=== PATIENT | female | born 1985 | race Caucasian/White ===

== ENCOUNTER 2023-10-04 20:48 | Emergency (ER) | payer MEDICARE, OTHER, SELFPAY ==
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
[2023-10-04 23:04] VITALS: BP 130/91
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
--- NOTE | 2023-10-05 00:46 | EDRN ---
per this pts request, this ASSISTANT SIGNAL MAINTAINER gave this pt a tooth brush to brush her teeth. the pt is requesting 'something to help me calm down. I have had Ativan in the past.' ER Dr Luong was notified of above. 1:1 observation is maintained by [facility] security
guard.
--- NOTE | 2023-10-05 01:01 | EDRN ---
this FACILITY MANAGER attempted to give this pt her ordered PO Ativan per EMAR order. the pt states she wants to take the med AFTER she talks with the psychiatrist via telelink. the pt is cooperative with staff. 1:1 observation is maintained by security
guard
--- NOTE | 2023-10-05 04:00 | EDRN ---
the pt had finished speaking with telepsych per safety and security officer. the pt was given a boxed lunch to eat per her request.
--- NOTE | 2023-10-05 04:33 | EDRN ---
this REGISTER OF WILLS again attempted to obtain this pts ordered bloodwork and urine specimen. the pt became irritable and stated 'no thank you, i just had my bloodwork done.' this REGISTER OF WILLS attempted to explain to this pt why bloodwork and urine tests were
required related to this current ER visit. the pt interrupted this REGISTER OF WILLS and stated loudly 'I know how this works, I have been to the hospital before, I want my waste picker and to make a few phone calls first.' the pt was becoming increasingly angry the
longer this REGISTER OF WILLS attempted to speak with this pt. This REGISTER OF WILLS was unable to obtain ordered bloodwork and urine specimen for testing at this time. ER Dr Hunter was notified of above.
1:1 observation is maintained by security officer.
--- NOTE | 2023-10-05 06:03 | EDRN ---
the pt is observed laying on ER stretcher in Crisis Room 1 with the room lights dimmed. the pt appears in NO acute distress, respirations unlabored, and skin color is within normal limits. Per sheet metal worker maintenance, the pts 302 is upheld and the pt will be
a Crisis Hold in the ER for the foreseeable future. 1:1 observation is maintained by ice guard tester.
--- NOTE | 2023-10-05 07:29 | ED.CRISIS ---
ED Crisis Note
ED Crisis Note
Subjective:
38-year-old female with a history of bipolar disorder. Awaits placement. No new events
Objective:
No respiratory distress. Awake and alert. Calm
Assessment/Plan:
Reportedly accepted to [place]. Awaits placement
[2023-10-05 08:35] VITALS: BP 120/79
--- NOTE | 2023-10-05 08:43 | PHANOTE ---
med rec note- attempt to talk to patient, she did not move or answer question, she awake at the time. ecw not upto date with hoe medication, patient pdmp record showed last filled lorazepam 0.5mg daily prn #15 on 11/18/2022 [facility],
pharmacy records show macrobid 100mg bid waiting at pharmacy on 10/02/23 and on dose of 4 tablets Valtrex 1g
== END 2023-10-05 16:25 ==
LOC: EMR 20:48
PROVIDERS: EMERGENCY PHYSICIAN Emergency Medicine
DX: F23 Brief psychotic disorder (principal); F15.90 Other stimulant use, unspecified, uncomplicated; F31.9 Bipolar disorder, unspecified; Z65.3 Problems related to other legal circumstances; Z85.528 Personal history of other malignant neoplasm of kidney; Z90.5 Acquired absence of kidney
CPT/HCPCS: 99285

== ENCOUNTER 2024-06-13 15:42 | Emergency (ER) | payer MEDICARE, OTHER, SELFPAY ==
[2024-06-13 15:45] VITALS: BP 152/105
--- NOTE | 2024-06-13 15:51 | ED.GENMED ---
ED Provider Triage
<Sonia Angelo NP - Last Filed: 06/13/24 15:57>
-
Patient seen by provider in Triage?: Seen in Triage
. Attestation: A medical screening examination has been initiated by a qualified medical provider. Based on the assessment performed at this time, it has been determined that an emergent medical condition may exist and the patient has been
informed that further medical evaluation and possible additional diagnostic testing may be needed.
HPI: 39 yo female with low back pain chronic low back pain 'they don't know what's wrong' saw [facility] 2 weeks ago and they recommended MRI. Gave Tramadol for pain. Tramadol does help 'I'm out of Tramadol.'
Since yesterday, has had loss of bladder control, started leaking urine after a cough and 'my full bladder emptied.' Feels numb and burning pains radiate up to both sides.
'I just want to be out of pain.' 'Do you have a sandwich or something?'
Gabapentin, Adderal, Lamotrigine, marijuana once a week.
GENERAL: Alert , in no apparent distress
EYE: No visual abnormalities.
NECK: Trachea midline
ENT: No visible abnormalities.
LUNGS: No acute respiratory distress
NEUROLOGICAL: Alert and oriented
SKIN: Skin intact. No visible changes.
MUSCULOSKELETAL: Moving extremities normally
PSYCH: Normal and appropriate interaction.
This is a medical evaluation conducted in person to initiate diagnostic evaluation and provide initial therapeutics. Please see further documentation by the treating clinician.
History of Present Illness
<Sonia Angelo HANDKERCHIEF SAMPLE CLERK - Last Filed: 06/13/24 15:57>
General
Chief Complaint: Back Pain
Time Seen by Provider: 06/13/24 17:07
<Juliana Benito PA-C - Last Filed: 06/14/24 10:33>
General
Source: patient
Exam Limitations: none
Nursing documentation reviewed up to this point in time: agreed with
History of Present Illness
History of Present Illness:
39-year-old female with a past medical history of opioid dependence, ADHD, bipolar disorder, renal cancer presents emergency department today with concerns of low back pain for the past few months. Patient states that the back pain is gotten a lot
worse this past week. She currently follows with [facility] retail zone specialist and she has a MRI scheduled in June 2 further assess this, she also has a appointment scheduled with pain management to address her tramadol dependence. Patient
states that yesterday she started to develop episodes of urinary incontinence. Of note, patient states that she has a history of intra-abdominal surgery (nephrectomy) and states as a result of the complication of the surgery, that since then she
has had issues with her pelvic floor and urinary incontinence, and she sees pelvic floor physical therapy. Patient also states that she has difficulty walking because of the pain, denies numbness or tingling of the extremities, denies loss of
sensation in her bilateral lower extremities. Patient requesting MRI, she has a schedule in June. Patient does not have any fevers or chills, denies IV drug use.
Past History
<Sonia Angelo HANDKERCHIEF SAMPLE CLERK - Last Filed: 06/13/24 15:57>
Past History
ED Past Medical History: Psychiatric (Bipolar disorder), Other (Left renal CA-no chemo/XRT) and Other (stones, renal tumor)
ED Past Surgical History: Other (Partial left nephrectomy at [facility])
Social History
Tobacco: Non-smoker
Alcohol: None
Drug: Other (Methamphetamines)
Personal: Single
Living: with family
Employment: Employed
Family History
Family History: Other (Noncontributory)
Review of Systems
<Juliana Benito PA-C - Last Filed: 06/14/24 10:33>
Review of Systems
All Other Systems: ROS reviewed and negative except as documented in HPI and ROS
Phy Exam
<Juliana Benito PA-C - Last Filed: 06/14/24 10:33>
Physical Exam
Physical Exam:
General: Patient is well appearing and in no acute distress; non-toxic
Skin: Warm and dry, no rashes or lesions
Head: Normocephalic, atraumatic
Eyes: Sclera non-icteric. EOMs intact. PERRLA.
Cardiac: Regular rate and rhythm, no murmurs
Peripheral Vascular: No lower extremity swelling or edema, 2+ distal pulses.
Pulm: Normal respiratory effort
Abdomen: No abdominal tenderness
Genitourinary: Normal sphincter tone.
Musculoskeletal: Midline lower spinal tenderness noted with paralumbar as well, worse with passive range of motion, negative straight leg raise. 5 out of 5 strength in bilateral lower extremities.
Neuro: CN II-XII intact, no focal neurologic deficits. 2+ DTRs bilaterally.
Psychiatric: Appropriate mood and affect.
Course
<Sonia Angelo NP - Last Filed: 06/13/24 15:57>
Orders/Labs/Results
Orders:
Orders
06/13/24 15:54
CMP [Comprehensive Metabolic Panel] Urgent
Complete Blood Count/With Diff Urgent
HCG, Serum Qualitative Screen Urgent
Comment: ADD ON
06/13/24 15:58
Test Result ONCE
06/13/24 16:02
Urinalysis Reflex To Culture Urgent
Date Specimen was Collected: 06/13/24
Time Specimen was Collected: 16:01
06/13/24 17:07
Add On- LAB Urgent
Comments:: in lab
Tests Added?: serum HCG
06/13/24 17:22
Ibuprofen [Motrin] 600 mg PO NOW STA
06/13/24 17:26
Case Management Consult ONCE
Case Management Consult: VN/Home Care
06/13/24 18:15
CT Lumbar Spine W/ Iv Contrast Urgent
Comment:
Reason For Exam: low back pain, urinary incontinence
06/13/24 20:03
Acetaminophen [Tylenol] 1,000 mg PO NOW STA
06/13/24 20:21
Lidocaine [Lidocaine 4% Patch] 1 patch TOPICAL DAILY ONE
Apply Lidocaine patch(s) to:: lower back
06/13/24 20:38
Tramadol HCl [Ultram] 50 mg PO NOW STA
Abnormal Lab Results
06/13/24
15:54
RBC 3.98 L 10^6/uL
(4.20-5.40)
Hgb 11.2 L g/dL
(12.0-16.0)
Hct 35.2 L %
(37.0-47.0)
MCHC 31.8 L g/dL
(33.0-37.0)
06/13/24 15:54
06/13/24 15:54
Vital Signs
Initial and Last Documented VS:
Initial Vital Signs
Temp Pulse Resp BP Pulse Ox
99.3 F 102 20 152/105 99
06/13/24 15:45 06/13/24 15:45 06/13/24 15:45 06/13/24 15:45 06/13/24 15:45
Last Documented Vital Signs
Temp Pulse Resp BP Pulse Ox
99.3 F 94 20 126/72 98
06/13/24 15:45 06/13/24 21:07 06/13/24 21:07 06/13/24 21:07 06/13/24 21:07
<Juliana Benito PA-C - Last Filed: 06/14/24 10:33>
Orders/Labs/Results
Orders:
Orders
06/13/24 15:54
CMP [Comprehensive Metabolic Panel] Urgent
Complete Blood Count/With Diff Urgent
HCG, Serum Qualitative Screen Urgent
Comment: ADD ON
06/13/24 15:58
Test Result ONCE
06/13/24 16:02
Urinalysis Reflex To Culture Urgent
Date Specimen was Collected: 06/13/24
Time Specimen was Collected: 16:01
06/13/24 17:07
Add On- LAB Urgent
Comments:: in lab
Tests Added?: serum HCG
06/13/24 17:22
Ibuprofen [Motrin] 600 mg PO NOW STA
06/13/24 17:26
Case Management Consult ONCE
Case Management Consult: VN/Home Care
06/13/24 18:15
CT Lumbar Spine W/ Iv Contrast Urgent
Comment:
Reason For Exam: low back pain, urinary incontinence
06/13/24 20:03
Acetaminophen [Tylenol] 1,000 mg PO NOW STA
06/13/24 20:21
Lidocaine [Lidocaine 4% Patch] 1 patch TOPICAL DAILY ONE
Apply Lidocaine patch(s) to:: lower back
06/13/24 20:38
Tramadol HCl [Ultram] 50 mg PO NOW STA
Abnormal Lab Results
06/13/24
15:54
RBC 3.98 L 10^6/uL
(4.20-5.40)
Hgb 11.2 L g/dL
(12.0-16.0)
Hct 35.2 L %
(37.0-47.0)
MCHC 31.8 L g/dL
(33.0-37.0)
06/13/24 15:54
06/13/24 15:54
Vital Signs
Initial and Last Documented VS:
Initial Vital Signs
Temp Pulse Resp BP Pulse Ox
99.3 F 102 20 152/105 99
06/13/24 15:45 06/13/24 15:45 06/13/24 15:45 06/13/24 15:45 06/13/24 15:45
Last Documented Vital Signs
Temp Pulse Resp BP Pulse Ox
99.3 F 94 20 126/72 98
06/13/24 15:45 06/13/24 21:07 06/13/24 21:07 06/13/24 21:07 06/13/24 21:07
<Alon Dc, DO - Last Filed: 06/15/24 03:08>
Orders/Labs/Results
Orders:
Orders
06/13/24 15:54
CMP [Comprehensive Metabolic Panel] Urgent
Complete Blood Count/With Diff Urgent
HCG, Serum Qualitative Screen Urgent
Comment: ADD ON
06/13/24 15:58
Test Result ONCE
06/13/24 16:02
Urinalysis Reflex To Culture Urgent
Date Specimen was Collected: 06/13/24
Time Specimen was Collected: 16:01
06/13/24 17:07
Add On- LAB Urgent
Comments:: in lab
Tests Added?: serum HCG
06/13/24 17:22
Ibuprofen [Motrin] 600 mg PO NOW STA
06/13/24 17:26
Case Management Consult ONCE
Case Management Consult: VN/Home Care
06/13/24 18:15
CT Lumbar Spine W/ Iv Contrast Urgent
Comment:
Reason For Exam: low back pain, urinary incontinence
06/13/24 20:03
Acetaminophen [Tylenol] 1,000 mg PO NOW STA
06/13/24 20:21
Lidocaine [Lidocaine 4% Patch] 1 patch TOPICAL DAILY ONE
Apply Lidocaine patch(s) to:: lower back
06/13/24 20:38
Tramadol HCl [Ultram] 50 mg PO NOW STA
Abnormal Lab Results
06/13/24
15:54
RBC 3.98 L 10^6/uL
(4.20-5.40)
Hgb 11.2 L g/dL
(12.0-16.0)
Hct 35.2 L %
(37.0-47.0)
MCHC 31.8 L g/dL
(33.0-37.0)
06/13/24 15:54
06/13/24 15:54
Vital Signs
Initial and Last Documented VS:
Initial Vital Signs
Temp Pulse Resp BP Pulse Ox
99.3 F 102 20 152/105 99
06/13/24 15:45 06/13/24 15:45 06/13/24 15:45 06/13/24 15:45 06/13/24 15:45
Last Documented Vital Signs
Temp Pulse Resp BP Pulse Ox
99.3 F 94 20 126/72 98
06/13/24 15:45 06/13/24 21:07 06/13/24 21:07 06/13/24 21:07 06/13/24 21:07
<Juliana Benito PA-C - Last Filed: 06/14/24 10:33>
MDM/Problems Addressed
Differential Diagnosis Includes:
See below
MDM/Problems Addressed:
HPI:
NUMBER AND COMPLEXITY OF PROBLEMS ADDRESSED AT THE ENCOUNTER
� Chronic conditions affecting care: Renal cancer, opioid dependence, ADHD, anxiety
� Acute Exacerbation and/or Progression of Chronic Illness:
� Differential Diagnosis includes: Bony metastasis space-occupying lesion, herniated nucleus pulposus, osteoarthritis, musculoskeletal sprain/strain, cauda equina syndrome
AMOUNT AND/OR COMPLEXITY OF DATA TO BE REVIEWED AND ANALYZED
� I performed an independent evaluation of and my interpretation is:
CT: CT reveals potential herniated disc at L5-S1
Laboratory Studies: No leukocytosis
Other:
� Review of other/old records: Reviewed previous ER physician documentation from 12/04/2023, patient seen for acute psychosis
� Clinical information was obtained by an independent historian:
� Prescriptions/Medications Considered but not given: None
� Further testing considered but not performed:
Considered MRI, see below
RISK OF COMPLICATIONS AND/OR MORBIDITY OR MORTALITY OF PATIENT MANAGEMENT
� Social determinants of health affecting care: None
� Discussion with other providers: ER attending, radiologist on-call
� Escalation of care including admission/observation vs risk of discharge considered:
39-year-old female presents emergency department today with concerns of lower back pain. She also notes episodes of urinary incontinence. However when discussing this with patient, appears to be more of a chronic issue as a result of a
complication during her intra-abdominal surgery, she does see pelvic floor physical therapy, doubt this is an acute problem as a result of cauda equina syndrome. She has a normal gait, normal neurologic exam, good rectal tone, normal deep tendon
reflexes, and ambulates without any difficulty. CT concerning for annular propulsion. Patient's pain was treated here in the emergency department with Tylenol, Advil, and a tramadol tablet. Medrol Dosepak sent to patient's pharmacy. Patient will
follow-up [facility] orthopedics. Patient states that she has a home health aide he was going to live with her and photophobia, reports that she recently got out of the divorce and states that she called the home health life care planner to help pick her
up. Patient was requesting case management. Case management evaluated patient, given resources. Patient stable for discharge.
<Juliana Benito PA-C - Last Filed: 06/14/24 10:33>
*Critical Care Note
Total Time (30-74mins, 75-104mins- exclusive of procedures): Not Applicable
<Juliana Benito PA-C - Last Filed: 06/14/24 10:33>
Update Note
Update Note:
06/14/2024:
Update: The next day, patient returned to the emergency department requesting tramadol. Patient states that with her history of cancer and chronic pain she has relied on this medication on and off. Patient states that she has an appointment with a
pain management doctor in a few weeks. Patient reports that 'if you do not give me my tramadol I will go on the streets and do heroin and it will be your fault. what if the medrol and tylenol do not help with my pain?' I agreed to give patient a
short course as she is awaiting to see her pain management doctor. I stressed that we are a narcotic responsible hospital and states that we will not be refilling this script or giving her additional medication.
ED Attending Note
<Sonia Angelo, HANDKERCHIEF SAMPLE CLERK - Last Filed: 06/13/24 15:57>
-
Portions of this chart may have been created with voice recognition software.� Occasional wrong word or��sound alike� substitutions may have occurred due to the inherent limitations of voice recognition software.
<Alon Dc DO - Last Filed: 06/15/24 03:08>
ED Attending Note
Patient seen and examined by attending physician: Yes
I performed a history and physical exam of patient and discussed management with resident, I reviewed resident's note and agree with documented findings and plan of care.: Yes
ED Attending Note:
Seen briefly with PA agree with assessment and plan 39-year-old female chronic back pain chronic pelvic floor dysfunction ambulating without difficulty,
Discharge Plan
Departure
Patient Disposition: Home (Routine Discharge)
Date of Disposition: 06/13/24
Time of Disposition: 20:50
Patient with high blood pressure during this ER visit?: Yes
Condition: Good
Discharge Problem:
Herniated disc, Low back pain
Instructions: Low Back Pain (DC), Radiculopathy (DC), BLOOD PRESSURE
Prescriptions:
New
methylprednisolone [Medrol (Ed)] 4 mg tablets,dose pack
See Rx Instructions .ROUTE .COMPLEX Qty: 21 0RF
Rx Instructions:
orally per package directions
tramadol 50 mg tablet
50 mg PO Q6H PRN (Reason: Pain) Qty: 12 0RF
No Action
Vraylar 1.5 mg Capsule
1.5 mg PO DAILY
Referrals:
Charles Esquivel, DO [Non-Admitting Privileges] - Call in 1-3 days for appt
UNKNOWN - PT DOES,NOT KNOW [Family Provider] -
Activity Restrictions/Additional Instructions:
Medrol Dosepak has been sent to your pharmacy
Your CT scan demonstrates moderate posterior diffuse annular bulge at L5-S1 could suggest herniated disc. Please follow-up with [facility] retail zone specialist and please get your MRI as scheduled in June.
Please continue pelvic floor physical therapy for your urinary incontinence.
Please return emergency department should you experience inability to ambulate, loss in sensation in your lower extremities, motor weakness, fevers or chills, headache, nausea and vomiting, or any other signs or symptoms concerning to you.
Interventions
Interventions:
*Risk Screen - Suicide Last Done: 06/13/24 17:34
*General Assessment Last Done: 06/13/24 15:45
*Neglect/Abuse Screening Last Done: 06/13/24 17:34
*ED COVID-19 Vaccine History Last Done: 06/13/24 17:34
*Nursing Disposition Last Done: 06/13/24 21:29
ED-Musculoskeletal Assessment Last Done: 06/13/24 17:34
Discharge Date and Time
Discharge Date/Time: 06/13/24 21:30
Print Language: LAO
[2024-06-13 16:06] LABS: % Basophils 0.9 % (0-2); % Immature Granulocytes 0.2 % (0-0.5); % Monocytes 6.9 % (1.7-9.3); Absolute Basophils 0.1 10^3/uL (0-0.2); Absolute Eosinophils 0.1 10^3/uL (0-0.7); Absolute Lymphocytes 2.9 10^3/uL (1.2-3.4); Absolute Monocytes 0.6 10^3/uL (0.1-0.6); Absolute Neutrophils 5.6 10^3/uL (1.4-6.5); Hematocrit 35.2 % (37.0-47.0); Hemoglobin 11.2 g/dL (12.0-16.0); Mean Corp Hgb Conc. 31.8 g/dL (33.0-37.0); Mean Corpuscular Hgb 28.1 pg (27.0-31.0); Mean Corpuscular Volume 88.4 fL (81.0-99.0); Mean Platelet Volume 10.4 fL (7.4-10.4); Nucleated Red Blood Cells % 0 %; Platelet Count 351 10^3/uL (130-400); Red Blood Cell Count 3.98 10^6/uL (4.20-5.40); White Blood Cell Count 9.2 10^3/uL (4.8-10.8)
[2024-06-13 16:21] LABS: ALT (SGPT) 21 U/L (0-35); AST (SGOT) 25 U/L (14-36); Albumin 4.6 g/dl (3.5-5.0); Alkaline Phosphatase 67 U/L (38-126); Blood Urea Nitrogen 14 mg/dl (7-17); Calcium 9.4 mg/dl (8.4-10.2); Carbon Dioxide 24 mmol/L (22-30); Chloride 106 mmol/L (98-107); Glucose 94 mg/dl (70-99); Potassium 4.6 mmol/L (3.5-5.1); Sodium 140 mmol/L (135-145); Total Bilirubin 0.3 mg/dl (0.2-1.3); Total Protein 7.2 g/dl (6.3-8.2); eGFR > 60.00
[2024-06-13 16:45] LABS: Urine Albumin Negative (Neg - Trace); Urine Bilirubin Negative (Negative); Urine Character Clear (Clear); Urine Color Yellow; Urine Glucose Negative (Negative); Urine Ketone Negative (Negative); Urine Leukocyte Negative (Negative); Urine Nitrite Negative (Negative); Urine Occult Blood Negative (Negative); Urine Specific Gravity 1.025 (<1.030); Urine Urobilinogen Negative (Neg - 1+)
[2024-06-13 17:34] VITALS: BMI 26.0
[2024-06-13 17:35] VITALS: BP 134/99
[2024-06-13] MEDS: MOTRIN 600 MG PO (17:40)
[2024-06-13 18:01] LABS: HCG, Serum Qualitative Screen Negative
[2024-06-13 18:31] VITALS: BP 132/97
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
[2024-06-13] MEDS: LIDOCAINE 4% PATCH 1 PATCH TOPICAL (20:35)
[2024-06-13] MEDS: TYLENOL 1000 MG PO (20:35)
[2024-06-13] MEDS: ULTRAM 50 MG PO (20:44)
[2024-06-13 21:07] VITALS: BP 126/72
--- NOTE | 2024-06-14 16:27 | CM ---
Addendum entered by Mirtha Garcia 06/14/24 16:53:
CM also gave patient, (before she left), information on the programs: Lifeline Assistance (government program) and Saf[employer]ink (specific to [place] Medicaid recipients). CM encouraged patient to look up the programs herself, or call the [facility]
Office for additional support.
Original Note:
Cynthia came in today asking how she can get a free cellphone, financial assistance, start in a PHP and get back into [facility]. She asked that CM call for her to get a phone and assist her in setting up her friend to be her caregiver. CM already
educated patient that she would need to call the [facility] Assistance office yesterday. 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
CM called patient's friend, Jame, who shared patient never showed up to his home last night. Cynthia confirmed she did not stay at his home, but went back to her 's house to see her three children. She said the visit did not go well. She
said she met a new friend at the smoke shop today, and she will ask her if she can take a shower at her place. Cynthia shared she'd like to shower and freshen up before returning to [facility].
Cynthia also asked for a [employer] token so she could take the bus into [facility]. She said she usually jumps on the bus without paying, but is always afraid of being caught. She said it's degrading/embarrassing and she can't do it any more.
CM found the 55 bus schedule and map and printed it out.
CM went over to Crisis to ask why patient's insurance could not be accepted at [facility]. They confirmed that her insurance could be used at [facility]. Crisis also clarified that a PHP program is only 2 weeks, not 5 years, as Cynthia stated. Cynthia
shared she's been in a PHP program for 5 years and this year, [facility], finally would not accept her insurance. Crisis gave CM two other mental health programs that patient could try to use and a substance abuse pamphlet.
In confidence, there is a note from Dr. Crowley that he will not take patient back until she goes to drug and alcohol rehab.
When CM went back into the waiting room to discuss the bus 55 schedule and mental health information, patient had disappeared.
== END 2024-06-13 21:30 | disposition home or self-care (01) ==
LOC: EMR 15:42
PROVIDERS: Registered Nurse; EMERGENCY PHYSICIAN Emergency Medicine
DX: M51.27 Other intervertebral disc displacement, lumbosacral region (principal); M54.50 Low back pain, unspecified; F90.9 Attention-deficit hyperactivity disorder, unspecified type; F11.20 Opioid dependence, uncomplicated; Z85.528 Personal history of other malignant neoplasm of kidney; F41.9 Anxiety disorder, unspecified; R03.0 Elevated blood-pressure reading, without diagnosis of hypertension
CPT/HCPCS: 99284; 72132; 80053; 81003; 84703; 85025

== ENCOUNTER 2024-06-14 23:34 | Emergency (ER) | payer MEDICARE, OTHER, SELFPAY ==
--- NOTE | 2024-06-15 00:18 | ED.GENMED ---
History of Present Illness
General
Chief Complaint: Crisis Evaluation
Source: patient
Time Seen by Provider: 06/15/24 00:14
Nursing documentation reviewed up to this point in time: agreed with
History of Present Illness
History of Present Illness:
39-year-old female who is homeless presents to the emergency department for place to stay until [facility] opens up in the morning. She states that she is from [facility] and she has lost her housing. She states it is cold and she wanted to
come in to the emergency department to stay warm until morning. Denies suicidal homicidal ideation, intent, or plan. She is looking to speak with [facility] to get placed in residential housing. Patient does not wish to have any treatment in the
emergency department.
Past History
Past History
ED Past Medical History: Psychiatric (Bipolar disorder), Other (Left renal CA-no chemo/XRT) and Other (stones, renal tumor)
ED Past Surgical History: Other (Partial left nephrectomy at [place])
Social History
Tobacco: Non-smoker
Alcohol: None
Drug: Other (Methamphetamines)
Personal: Single
Living: with family
Employment: Employed
Family History
Family History: Other (Noncontributory)
Review of Systems
Review of Systems
Allergies reviewed?: Yes
All Other Systems: ROS reviewed and negative except as documented in HPI and ROS
Psychiatric: Reports depression and anxiety; Denies suicidal or hallucinations
Phy Exam
General Physical Exam
General Presentation: well appearing
General Skin: warm and dry
General Habitus: normal
General Mental: alert
Cardiovascular Exam
Cardiovascular Exam: regular rate/rhythm and no edema
Pulmonary Exam
Pulmonary Exam: lungs clear and no respiratory distress
Neurological Exam
Neurological Exam: alert and oriented x3
Musculoskeletal Exam
Musculoskeletal Exam: full ROM
Skin Exam
Skin Exam: normal color and warm/dry
Psychiatric Exam
Psychiatric Exam: normal mood/affect
Course
Orders/Labs/Results
Orders:
Orders
06/15/24 00:02
Crisis Consult Urgent
Reason for Consult: Crisis
*Critical Care Note
Total Time (30-74mins, 75-104mins- exclusive of procedures): Not Applicable
ED Attending Note
-
Portions of this chart may have been created with voice recognition software.� Occasional wrong word or��sound alike� substitutions may have occurred due to the inherent limitations of voice recognition software.
Discharge Plan
Departure
Patient Disposition: [facility]
Date of Disposition: 06/15/24
Time of Disposition: 00:19
Discharge Problem:
Depression
Instructions: Depression, Adult (DC), Anxiety, Adult (DC)
Prescriptions:
No Action
Vraylar 1.5 mg Capsule
1.5 mg PO DAILY
methylprednisolone [Medrol (Ed)] 4 mg tablets,dose pack
See Rx Instructions .ROUTE .COMPLEX Qty: 21 0RF
Rx Instructions:
orally per package directions
tramadol 50 mg tablet
50 mg PO Q6H PRN (Reason: Pain) Qty: 12 0RF
Referrals:
[facility] [Active] -
UNKNOWN - PT DOES,NOT KNOW [Family Provider] -
Activity Restrictions/Additional Instructions:
It was a pleasure meeting you and taking part in your care. We hope for your continued healing and wellness.
Please read discharge instructions in their entirety. However, they are for general education and may not describe your exact diagnosis at discharge. Information on your ER visit and medical conditions were discussed with you along with appropriate
follow up information...
If indicated, please take your medications as instructed and indicated on discharge paperwork.
Please schedule a follow up appointment as directed. Call to schedule an appointment
Please return to the emergency department with ANY change in, persisting, or worsening of symptoms. If any of your symptoms do not improve, or persist, or become more severe within 6-12 hours, please return to the emergency department for further
care.
Please return to the emergency department if you develop a headache, neck pain/stiffness, fever greater than 100.4F, chest pain, shortness of breath, persistent nausea, vomiting, slurred speech, difficulty walking, numbness/tingling, weakness, signs
of infection or any other symptoms that are worrisome to you.
If you have any questions or concerns please do not hesitate to call the Hospital at
Interventions
Interventions:
*Risk Screen - Suicide Last Done: 06/14/24 23:35
Discharge Date and Time
Print Language: WOLOF
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
== END 2024-06-15 00:32 ==
LOC: EMR 23:34
PROVIDERS: EMERGENCY PHYSICIAN Student in an Organized Health Care Education/Training Program
DX: F32.A Depression, unspecified (principal); Z59.00 Homelessness unspecified; F31.9 Bipolar disorder, unspecified; F41.9 Anxiety disorder, unspecified; M19.90 Unspecified osteoarthritis, unspecified site; F90.9 Attention-deficit hyperactivity disorder, unspecified type; F43.10 Post-traumatic stress disorder, unspecified; F17.290 Nicotine dependence, other tobacco product, uncomplicated; Z85.528 Personal history of other malignant neoplasm of kidney; Z90.5 Acquired absence of kidney
CPT/HCPCS: 99281